=== PATIENT | female | born 1945 | race Caucasian/White ===

== ENCOUNTER → 2018-03-03 | Emergency (ER) | payer MEDICARE, BC ==
[~2018-03-03] MED LIST: HYDROcodone/Acetaminophen 10/325 mg Tablet ONE
--- NOTE | 2018-03-03 22:26 | CT ---
CT CERVICAL SPINE WITHOUT CONTRAST: 03/03/18 HISTORY: Fall. Occipital pain. occipital bone fracture. COMPARISON: 03/11/17 TECHNIQUE: CT cervical spine is performed without contrast. Reformatted images are submitted for interpretation. No craniocervical dissociation. Lateral masses of C1-C2 as well as the facets have appropriate articu lation. Intact odontoid process. Stable degenerative changes of the cervical spine. Vertebral body he ight is maintained. There is no fracture. Mild straightening of the normal cervical lordosis is presu med to be due to patient position or muscle spasm. No prevertebral soft tissue swelling. Chronic changes of the lung apices. No high grade central canal stenosis or high grade foraminal narrowing. Stable stenosis due to degene rative change is identified. Evaluation is limited by technique. Minimal heterogeneous thyroid gland. IMPRESSION: No evidence of cervical spine fracture. POS: [facility]
--- NOTE | 2018-03-03 22:30 | CT ---
BRAIN CT WITHOUT CONTRAST: 03/03/18 HISTORY: Patient fell and hit occiput. COMPARISON: 03/11/17. TECHNIQUE: Brain CT is performed without contrast. Reformatted images are submitted for interpretation. FINDINGS: No parenchymal hemorrhage or extra-axial hematoma. No midline shift. Basilar cisterns are patent. Age appropriate atrophy. Cortical campbell-white different iation is preserved. Ventricles and sulci are patent and symmetric. White matter hypodensities due to chronic small vessel ischemic changes are identified. Adequate aeration of the sinuses and mastoid air cells. Cavernous carotid atherosclerosis is noted. There is a small amount of hematoma on the posterior midline scalp. There is a nondisplaced fracture involving the right occipital bone (axial images 4-9). IMPRESSION: 1. Nondisplaced right occipital bone fracture. 2. Posterior midline scalp soft tissue hematoma. 3. No intracranial or posttraumatic sequela. POS: [facility]
== END ==
LOC: MADERS 21:04
DX: S06.0X0A Concussion without loss of consciousness, initial encounter (principal); S02.119A Unspecified fracture of occiput, initial encounter for closed fracture; M06.9 Rheumatoid arthritis, unspecified; E11.9 Type 2 diabetes mellitus without complications; E78.5 Hyperlipidemia, unspecified; I10 Essential (primary) hypertension; Z79.899 Other long term (current) drug therapy; Z79.4 Long term (current) use of insulin; W18.30XA Fall on same level, unspecified, initial encounter
CPT/HCPCS: 70450; 72125

== ENCOUNTER 2018-07-28 18:47 | Emergency (ER) | payer MEDICARE, BC ==
--- NOTE | 2018-07-28 21:21 | RAD ---
RIGHT SHOULDER THREE VIEWS: HISTORY: A 2-year-old female with a history of right shoulder injury. FINDINGS: AC joint arthrosis changes. There is some downsloping of the lateral acromion. Degenerative changes of the glenohumeral joint. IMPRESSION: 1. Degenerative changes of the acromioclavicular joint and glenohumeral joint. 2. No acute fracture or dislocation. POS: [facility]
--- NOTE | 2018-07-28 21:37 | CT ---
CT BRAIN WITHOUT IV CONTRAST: HISTORY: A 72-year-old female with a history of injury. FINDINGS: No focal mass or midline shift. No intraaxial or extraaxial hemorrhage. Mild atrophy. IMPRESSION: 1. Mild atrophy. 2. No mass, bleed, or other acute process. POS: [facility]
== END 2018-07-28 21:45 | disposition home or self-care (01) ==
LOC: MADERS 18:47
DX: S00.03XA Contusion of scalp, initial encounter (principal); S40.011A Contusion of right shoulder, initial encounter; I10 Essential (primary) hypertension; E78.00 Pure hypercholesterolemia, unspecified; E11.9 Type 2 diabetes mellitus without complications; Z79.899 Other long term (current) drug therapy; Z79.4 Long term (current) use of insulin; W01.0XXA Fall on same level from slipping, tripping and stumbling without subsequent striking against object, initial encounter
CPT/HCPCS: 70450

== ENCOUNTER 2019-02-13 13:37 | Outpatient (CLI) | payer MEDICARE, BC ==
--- NOTE | 2019-02-13 14:34 | RAD ---
Right forearm 2 views HISTORY: Fall. Right arm injury. FINDINGS: Subtle transverse cortical disruption involves the distal radial metaphysis with buckling o f the lateral cortex. No displacement. Lateral view shows fluid distention of the elbow joint capsule as evidenced by elevation of the dista l humeral fat pads. No fracture planes are apparent. There are degenerative changes of the elbow and wrist. Erosive changes involve the lateral margin of the triquetrum. No triquetral fracture is ev ident lateral view. Osseous structures are diffusely demineralized. IMPRESSION: Probable nondisplaced slightly impacted distal right radial fracture. Please correlate re garding point tenderness at the distal radius. Fluid distention of the elbow joint capsule without fracture plane apparent. If symptoms are referabl e to the elbow, please consider immobilization and short-term radiographic follow-up. Prominent degenerative changes of the wrist. Osteoporosis.
== END 2019-02-13 13:38 | disposition home or self-care (01) ==
LOC: MADRAD 13:37
PROVIDERS: ATTEND Physician Assistant
DX: Z91.81 History of falling (principal); M19.031 Primary osteoarthritis, right wrist; M81.0 Age-related osteoporosis without current pathological fracture; M25.831 Other specified joint disorders, right wrist

== ENCOUNTER 2020-03-20 19:41 | Emergency (ER) | payer MEDICARE, BC ==
[2020-03-20] MEDS ORDERED: Morphine 4 MG/ML VIAL ONE ×2 (20:18→23:12)
--- NOTE | 2020-03-20 21:14 | RAD ---
RIGHT HUMERUS: 03/20/20 A total of four views. HISTORY: Fall with injury. There is fracture of the distal humerus at the elbow. There is slight comminution and evidence of dis placement of the medial condyle of the distal humerus. The radius and ulna appear intact but are subo ptimally evaluated. The shoulder appears unremarkable. IMPRESSION: Fracture distal humerus. POS: [facility]
--- NOTE | 2020-03-20 21:19 | RAD ---
LEFT ANKLE: 03/20/20 Three views. HISTORY: Fall with injury and pain. No significant soft tissue swelling. Mild degenerative changes at the tibiotalar joint. There is mild flattening of the talar dome on the lateral view. No evidence of acute fracture identified. IMPRESSION: No evidence of acute fracture. POS: [facility]
--- NOTE | 2020-03-20 22:00 | RAD ---
RIGHT ELBOW: 03/20/20 Two views. Patient unable to adequately position for the images. HISTORY: Injury from fall. There is a slightly comminuted fracture of the distal humerus at the elbow. This appears to involve t he medial condyle of the distal humerus with displacement. There is mild comminution. The radius and ulna appear intact. IMPRESSION: Fracture distal humerus. POS: [facility]
--- NOTE | 2020-03-20 23:23 | RAD ---
RIGHT FOREARM 2 VIEWS: Date: 03/20/2020 HISTORY: Fall with injury. Comparison made to prior elbow exam from 2019. FINDINGS: Severe degenerative change at the wrist. There is carpal collapse and narrowing of the radiocarpal richard int with sclerosis and hypertrophic change. These carpal bone findings appear stable. On the lateral view, there is evidence of a fracture of the distal humerus with a displaced fragment seen ventrally. This is not appreciated in the AP projection. Recommend dedicated elbow films. No other abnormality of the forearm seen. IMPRESSION: Evidence of fracture of the distal humerus seen on lateral view of the forearm. 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 These carpal changes appear stable with no evidence of acute forearm fracture identified. POS: [facility]
== END 2020-03-21 | disposition home or self-care (01) ==
LOC: MADERS 19:41
DX: S42.441A Displaced fracture (avulsion) of medial epicondyle of right humerus, initial encounter for closed fracture (principal); S93.402A Sprain of unspecified ligament of left ankle, initial encounter; I10 Essential (primary) hypertension; E11.9 Type 2 diabetes mellitus without complications; E78.00 Pure hypercholesterolemia, unspecified; Z79.899 Other long term (current) drug therapy; X58.XXXA Exposure to other specified factors, initial encounter
CPT/HCPCS: 24530; 96372; J2270

== ENCOUNTER 2020-08-26 12:09 | Emergency (ER) | payer MEDICARE, BC ==
[2020-08-26 12:45] LABS: #Basophils 0.1 thou/uL (0.0-0.2); #Eosinphils 0.2 thou/uL (0.0-0.7); #Lymphocytes 1.8 thou/uL (1.20-3.40); #Monocytes 0.6 thou/uL (0.11-0.59); #Neutrophils 8.5 thou/uL (1.40-6.50); %Basophils 0.7 % (0.0-1.0); %Eosinophils 1.6 % (0.0-10.0); %Lymphocytes 16.1 % (21.0-51.0); %Monocytes 5.5 % (0.0-10.0); %Neutrophils 76.1 % (42.0-75.0); Hemoglobin 11.9 g/dL (12.0-16.0); Mean Corpuscular HGB CONC 32.4 g/dL (32.0-36.0); Mean Corpuscular Hemoglobin 29.3 pg (27.0-31.0); Mean Corpuscular Volume 90.7 fL (78.0-98.0); Mean Platelet Volume 6.1 fL (7.4-10.4); Platelet Count 278 thou/uL (130-400); RBC Distribution Width 14.1 % (11.5-14.5); Red Blood Cell (RBC) Count 4.04 mill/uL (4.20-5.40); White Blood Cell (WBC) Count 11.2 thou/uL (4.8-10.8)
[2020-08-26 12:53] LABS: INR-International Normal Ratio 0.8; Prothrombin Time 11.6 sec (12.0-14.7)
[2020-08-26 13:04] LABS: ALT (SGPT) 28 U/L (8-55); AST (SGOT) 36 U/L (5-34); Albumin 3.8 g/dL (3.4-4.8); Alkaline Phosphatase 60 U/L (40-110); Anion Gap 16 mmol/L (10-20); BUN (Urea Nitrogen) 20 mg/dL (9.8-20.1); Bilirubin, Total 0.4 mg/dL (0.2-1.2); Calc. Creatinine Clearance 0 mL/min (70-130); Calcium 9.2 mg/dL (7.8-10.44); Carbon Dioxide 24 mmol/L (23-31); Chloride 102 mmol/L (98-107); Globulin 3.1 g/dL (2.4-3.5); Glucose 181 mg/dL (83-110); Potassium 3.7 mmol/L (3.5-5.1); Protein, Total 6.9 g/dL (6.0-8.3); Sodium 138 mmol/L (136-145)
[2020-08-26] MEDS ORDERED: diphenhydrAMINE 50 MG/ML VIAL ONE (13:14)
[2020-08-26] MEDS ORDERED: Metoclopramide HCl 10 MG/2 ML VIAL ONE (13:22)
== END 2020-08-26 14:10 | disposition home or self-care (01) ==
LOC: MADERS 12:09
DX: I10 Essential (primary) hypertension (principal); R51.9 Headache, unspecified; E11.9 Type 2 diabetes mellitus without complications; E78.00 Pure hypercholesterolemia, unspecified; Z79.899 Other long term (current) drug therapy; Z79.4 Long term (current) use of insulin
CPT/HCPCS: 36415; 80053; 85025; 85610; 96374; 96375; J1200; J2765

== ENCOUNTER 2022-04-01 11:25 | Outpatient (CLI) | payer MEDICARE, BC | END 2022-04-01 11:26 | disposition home or self-care (01) | LOC: MADRAD 11:25 | PROVIDERS: ATTEND Physician Assistant | DX: M25.551 Pain in right hip (principal); M25.552 Pain in left hip ==

== ENCOUNTER 2022-07-05 09:51 | Outpatient (CLI) | payer MEDICARE, BC | END 2022-07-05 09:52 | disposition home or self-care (01) | LOC: MADRAD 09:51 | PROVIDERS: ATTEND Physician Assistant | DX: Z91.81 History of falling (principal) | CPT/HCPCS: 72072 ==

== ENCOUNTER 2022-08-30 11:58 | Inpatient (IN) | payer MEDICARE, BC ==
[2022-08-30] MEDS ORDERED: Artificial Tear Sol 15 ML BOT EA EYE PRN (15:07)
[2022-08-30] MEDS: Calcium Carbonate 600 MG + Vit D TAB PO SCH (20:51)
[2022-08-30] MEDS: Acetaminophen 500 MG TAB PO PRN (20:56)
[2022-08-30] MEDS: ALPRAZolam 0.5 MG TAB PO PRN (21:12)
[2022-08-31 05:30] LABS: #Basophils 0.1 thou/uL (0.0-0.2); #Eosinphils 0.5 thou/uL (0.0-0.7); #Lymphocytes 3.4 thou/uL (1.20-3.40); #Monocytes 0.8 thou/uL (0.11-0.59); #Neutrophils 6.5 thou/uL (1.40-6.50); %Basophils 1.1 % (0.0-1.0); %Eosinophils 4.8 % (0.0-10.0); %Monocytes 6.9 % (0.0-10.0); %Neutrophils 57.2 % (42.0-75.0); Hemoglobin 10.7 g/dL (12.0-16.0); Mean Corpuscular HGB CONC 32.5 g/dL (32.0-36.0); Mean Corpuscular Hemoglobin 27.4 pg (27.0-31.0); Mean Corpuscular Volume 84.4 fl (78.0-98.0); Mean Platelet Volume 5.7 fL (7.4-10.4); Platelet Count 493 10x3/uL (130-400); RBC Distribution Width 12.8 % (11.5-14.5); White Blood Cell (WBC) Count 11.3 10x3/uL (4.8-10.8)
[2022-08-31 05:35] LABS: ALT (SGPT) 34 U/L (8-55); AST (SGOT) 60 U/L (5-34); Albumin 3.5 g/dL (3.4-4.8); Alkaline Phosphatase 62 U/L (40-110); Anion Gap 15 mmol/L (10-20); BUN (Urea Nitrogen) 19 mg/dL (9.8-20.1); Bilirubin, Total 0.4 mg/dL (0.2-1.2); Calc. Creatinine Clearance 45 mL/min (70-130); Calcium 10.8 mg/dL (7.8-10.44); Carbon Dioxide 25 mmol/L (23-31); Chloride 101 mmol/L (98-107); Estimated GFR 77; Globulin 4.3 g/dL (2.4-3.5); Glucose 91 mg/dL (83-110); Potassium 3.9 mmol/L (3.5-5.1); Protein, Total 7.8 g/dL (5.8-8.1); Sodium 137 mmol/L (136-145)
[2022-08-31] MEDS: Glimepiride 2 MG TAB PO SCH (08:34)
[2022-08-31] MEDS: Calcium Carbonate 600 MG + Vit D TAB PO SCH ×2 (08:35→21:03)
[2022-08-31] MEDS: Lisinopril 20 MG TAB PO SCH (08:35)
[2022-08-31] MEDS: Sertraline 100 MG TAB PO SCH (08:35)
[2022-08-31] MEDS: Multivitamin W/ Minerals 1 TAB PO SCH (08:35)
[2022-08-31] MEDS: predniSONE 5 MG TAB PO SCH (08:36)
[2022-08-31] MEDS: [UNRECOGNIZED DRUG - OTHER] PO SCH (08:37)
[2022-08-31] MEDS: Amlodipine 5 MG TAB PO SCH (08:37)
[2022-08-31] MEDS: VIT C PO SCH (08:37)
[2022-08-31] MEDS: GLUC SU PO SCH (08:37)
[2022-08-31] MEDS: CHONDRO SU A PO SCH (08:37)
[2022-08-31] MEDS: Acetaminophen 500 MG TAB PO PRN (08:44)
[2022-08-31] MEDS: Lantus 1000 UNITS/10 ML VIAL SC SCH (08:44)
[2022-08-31] MEDS ORDERED: FLU VACC QS2022-23(65YR UP)/PF 240 MCG/0.7 ML SYRINGE IM ONE (09:00)
[2022-08-31 12:27] LABS: Hemoglobin A1c 8.8 % (4.0-6.0)
[2022-08-31] MEDS: ALPRAZolam 0.5 MG TAB PO PRN (21:04)
[2022-08-31] MEDS: Atorvastatin Calcium 40 MG TAB PO SCH (21:04)
[2022-09-01] MEDS: Glimepiride 2 MG TAB PO SCH (08:20)
[2022-09-01] MEDS: predniSONE 5 MG TAB PO SCH (08:21)
[2022-09-01] MEDS: Calcium Carbonate 600 MG + Vit D TAB PO SCH ×2 (08:21→20:30)
[2022-09-01] MEDS: Sertraline 100 MG TAB PO SCH (08:21)
[2022-09-01] MEDS: Multivitamin W/ Minerals 1 TAB PO SCH (08:21)
[2022-09-01] MEDS: Amlodipine 5 MG TAB PO SCH (08:21)
[2022-09-01] MEDS: GLUC SU PO SCH (08:22)
[2022-09-01] MEDS: VIT C PO SCH (08:22)
[2022-09-01] MEDS: CHONDRO SU A PO SCH (08:22)
[2022-09-01] MEDS: [UNRECOGNIZED DRUG - OTHER] PO SCH (08:22)
[2022-09-01] MEDS: Lisinopril 20 MG TAB PO SCH (08:22)
[2022-09-01] MEDS: Lantus 1000 UNITS/10 ML VIAL SC SCH (08:22)
[2022-09-01] MEDS: tiZANidine HCl 4 MG TAB PO PRN (13:25)
[2022-09-01] MEDS: Acetaminophen 500 MG TAB PO PRN ×2 (13:26→20:30)
[2022-09-01] MEDS: ALPRAZolam 0.5 MG TAB PO PRN (20:31)
[2022-09-01] MEDS: Atorvastatin Calcium 40 MG TAB PO SCH (20:31)
[2022-09-02] MEDS: Glimepiride 2 MG TAB PO SCH (08:18)
[2022-09-02] MEDS: Multivitamin W/ Minerals 1 TAB PO SCH (08:20)
[2022-09-02] MEDS: predniSONE 5 MG TAB PO SCH (08:20)
[2022-09-02] MEDS: Calcium Carbonate 600 MG + Vit D TAB PO SCH ×2 (08:20→20:54)
[2022-09-02] MEDS: Amlodipine 5 MG TAB PO SCH (08:20)
[2022-09-02] MEDS: Sertraline 100 MG TAB PO SCH (08:20)
[2022-09-02] MEDS: Lisinopril 20 MG TAB PO SCH (08:20)
[2022-09-02] MEDS: tiZANidine HCl 4 MG TAB PO PRN (08:27)
[2022-09-02] MEDS: Acetaminophen 500 MG TAB PO PRN ×2 (08:28→20:54)
[2022-09-02] MEDS: Lantus 1000 UNITS/10 ML VIAL SC SCH (08:28)
[2022-09-02] MEDS: VIT C PO SCH (08:34)
[2022-09-02] MEDS: CHONDRO SU A PO SCH (08:34)
[2022-09-02] MEDS: [UNRECOGNIZED DRUG - OTHER] PO SCH (08:34)
[2022-09-02] MEDS: GLUC SU PO SCH (08:34)
[2022-09-02] MEDS: Atorvastatin Calcium 40 MG TAB PO SCH (20:54)
[2022-09-02] MEDS: ALPRAZolam 0.5 MG TAB PO PRN (20:55)
[2022-09-03] MEDS: Glimepiride 2 MG TAB PO SCH (08:40)
[2022-09-03] MEDS: Lisinopril 20 MG TAB PO SCH (08:40)
[2022-09-03] MEDS: Amlodipine 5 MG TAB PO SCH (08:40)
[2022-09-03] MEDS: Lantus 1000 UNITS/10 ML VIAL SC SCH (08:42)
[2022-09-03] MEDS: Calcium Carbonate 600 MG + Vit D TAB PO SCH ×2 (08:42→20:40)
[2022-09-03] MEDS: Sertraline 100 MG TAB PO SCH (08:42)
[2022-09-03] MEDS: predniSONE 5 MG TAB PO SCH (08:42)
[2022-09-03] MEDS: Multivitamin W/ Minerals 1 TAB PO SCH (08:42)
[2022-09-03] MEDS ORDERED: Acetaminophen 500 MG TAB PO PRN (13:51)
[2022-09-03] MEDS: Atorvastatin Calcium 40 MG TAB PO SCH (20:41)
[2022-09-03] MEDS: ALPRAZolam 0.5 MG TAB PO PRN (20:41)
[2022-09-04] MEDS: Amlodipine 5 MG TAB PO SCH (08:29)
[2022-09-04] MEDS: Glimepiride 2 MG TAB PO SCH (08:29)
[2022-09-04] MEDS: Multivitamin W/ Minerals 1 TAB PO SCH (08:29)
[2022-09-04] MEDS: Ferrous Sulfate 325 MG TAB PO SCH (08:29)
[2022-09-04] MEDS: Sertraline 100 MG TAB PO SCH (08:29)
[2022-09-04] MEDS: predniSONE 5 MG TAB PO SCH (08:29)
[2022-09-04] MEDS: Lisinopril 20 MG TAB PO SCH (08:30)
[2022-09-04] MEDS: Lantus 1000 UNITS/10 ML VIAL SC SCH (08:30)
[2022-09-04] MEDS: Calcium Carbonate 600 MG + Vit D TAB PO SCH ×2 (08:30→20:32)
[2022-09-04] MEDS: Atorvastatin Calcium 40 MG TAB PO SCH (20:32)
[2022-09-05] MEDS: Lisinopril 20 MG TAB PO SCH (08:15)
[2022-09-05] MEDS: Calcium Carbonate 600 MG + Vit D TAB PO SCH ×2 (08:15→20:48)
[2022-09-05] MEDS: predniSONE 5 MG TAB PO SCH (08:16)
[2022-09-05] MEDS: Glimepiride 2 MG TAB PO SCH (08:16)
[2022-09-05] MEDS: Multivitamin W/ Minerals 1 TAB PO SCH (08:16)
[2022-09-05] MEDS: Lantus 1000 UNITS/10 ML VIAL SC SCH (08:16)
[2022-09-05] MEDS: Sertraline 100 MG TAB PO SCH (08:16)
[2022-09-05] MEDS: Amlodipine 5 MG TAB PO SCH (08:16)
[2022-09-05] MEDS: Methotrexate Sodium 2.5 MG TAB PO SCH (08:18)
[2022-09-05] MEDS: Ferrous Sulfate 325 MG TAB PO SCH (08:19)
[2022-09-05] MEDS: Atorvastatin Calcium 40 MG TAB PO SCH (20:48)
[2022-09-05] MEDS: ALPRAZolam 0.5 MG TAB PO PRN (20:49)
[2022-09-06] MEDS: Glimepiride 2 MG TAB PO SCH (08:15)
[2022-09-06] MEDS: Multivitamin W/ Minerals 1 TAB PO SCH (08:15)
[2022-09-06] MEDS: Sertraline 100 MG TAB PO SCH (08:15)
[2022-09-06] MEDS: predniSONE 5 MG TAB PO SCH (08:16)
[2022-09-06] MEDS: Lisinopril 20 MG TAB PO SCH ×2 (08:16→20:25)
[2022-09-06] MEDS: Calcium Carbonate 600 MG + Vit D TAB PO SCH ×2 (08:16→20:25)
[2022-09-06] MEDS: Amlodipine 5 MG TAB PO SCH (08:16)
[2022-09-06] MEDS: Ferrous Sulfate 325 MG TAB PO SCH (08:17)
[2022-09-06] MEDS: Lantus 1000 UNITS/10 ML VIAL SC SCH (08:17)
[2022-09-06] MEDS: Acetaminophen 500 MG TAB PO PRN (12:45)
[2022-09-06] MEDS: Acetaminophen 500 MG TAB PO SCH (20:23)
[2022-09-06] MEDS: Atorvastatin Calcium 40 MG TAB PO SCH (20:24)
[2022-09-06] MEDS: ALPRAZolam 0.5 MG TAB PO PRN (20:24)
[2022-09-07] MEDS: Acetaminophen 500 MG TAB PO PRN (07:20)
[2022-09-07] MEDS: Amlodipine 5 MG TAB PO SCH (08:25)
[2022-09-07] MEDS: Multivitamin W/ Minerals 1 TAB PO SCH (08:25)
[2022-09-07] MEDS: predniSONE 5 MG TAB PO SCH (08:25)
[2022-09-07] MEDS: Calcium Carbonate 600 MG + Vit D TAB PO SCH ×2 (08:25→20:40)
[2022-09-07] MEDS: Lisinopril 20 MG TAB PO SCH ×2 (08:26→20:39)
[2022-09-07] MEDS: Glimepiride 2 MG TAB PO SCH (08:26)
[2022-09-07] MEDS: Acetaminophen 500 MG TAB PO SCH ×2 (08:27→20:38)
[2022-09-07] MEDS: Lantus 1000 UNITS/10 ML VIAL SC SCH (08:28)
[2022-09-07] MEDS: Ferrous Sulfate 325 MG TAB PO SCH (08:29)
[2022-09-07] MEDS: Sertraline 100 MG TAB PO SCH (08:45)
[2022-09-07] MEDS: Acetaminophen 325 MG TAB PO PRN (15:37)
[2022-09-07] MEDS: Atorvastatin Calcium 40 MG TAB PO SCH (20:39)
[2022-09-07] MEDS: tiZANidine HCl 4 MG TAB PO PRN (20:43)
[2022-09-08] MEDS: Glimepiride 2 MG TAB PO SCH (08:24)
[2022-09-08] MEDS: Calcium Carbonate 600 MG + Vit D TAB PO SCH ×2 (08:25→20:33)
[2022-09-08] MEDS: Ferrous Sulfate 325 MG TAB PO SCH (08:26)
[2022-09-08] MEDS: Multivitamin W/ Minerals 1 TAB PO SCH (08:26)
[2022-09-08] MEDS: Amlodipine 5 MG TAB PO SCH (08:26)
[2022-09-08] MEDS: Acetaminophen 500 MG TAB PO SCH ×2 (08:26→21:16)
[2022-09-08] MEDS: Sertraline 100 MG TAB PO SCH (08:26)
[2022-09-08] MEDS: Lisinopril 20 MG TAB PO SCH ×2 (08:26→20:33)
[2022-09-08] MEDS: Lantus 1000 UNITS/10 ML VIAL SC SCH (08:32)
[2022-09-08] MEDS: predniSONE 5 MG TAB PO SCH (08:32)
[2022-09-08] MEDS: tiZANidine HCl 4 MG TAB PO PRN (20:33)
[2022-09-08] MEDS: Atorvastatin Calcium 40 MG TAB PO SCH (20:33)
[2022-09-09] MEDS: Acetaminophen 325 MG TAB PO PRN (04:35)
[2022-09-09] MEDS: Lisinopril 20 MG TAB PO SCH ×2 (08:23→21:34)
[2022-09-09] MEDS: Multivitamin W/ Minerals 1 TAB PO SCH (08:23)
[2022-09-09] MEDS: Sertraline 100 MG TAB PO SCH (08:23)
[2022-09-09] MEDS: predniSONE 5 MG TAB PO SCH (08:24)
[2022-09-09] MEDS: Ferrous Sulfate 325 MG TAB PO SCH (08:24)
[2022-09-09] MEDS: Calcium Carbonate 600 MG + Vit D TAB PO SCH ×2 (08:24→21:34)
[2022-09-09] MEDS: Glimepiride 2 MG TAB PO SCH (08:24)
[2022-09-09] MEDS: Acetaminophen 500 MG TAB PO SCH ×2 (08:25→21:34)
[2022-09-09] MEDS: Amlodipine 5 MG TAB PO SCH (08:25)
[2022-09-09] MEDS: Lantus 1000 UNITS/10 ML VIAL SC SCH (08:25)
[2022-09-09] MEDS: Atorvastatin Calcium 40 MG TAB PO SCH (21:34)
[2022-09-10] MEDS: Amlodipine 5 MG TAB PO SCH (07:47)
[2022-09-10] MEDS: Lisinopril 20 MG TAB PO SCH ×2 (07:48→21:45)
[2022-09-10] MEDS: Glimepiride 2 MG TAB PO SCH (07:48)
[2022-09-10] MEDS: Sertraline 100 MG TAB PO SCH (07:48)
[2022-09-10] MEDS: Calcium Carbonate 600 MG + Vit D TAB PO SCH ×2 (07:49→21:45)
[2022-09-10] MEDS: predniSONE 5 MG TAB PO SCH (07:49)
[2022-09-10] MEDS: Ferrous Sulfate 325 MG TAB PO SCH (07:49)
[2022-09-10] MEDS: Multivitamin W/ Minerals 1 TAB PO SCH (07:49)
[2022-09-10] MEDS: Acetaminophen 500 MG TAB PO SCH ×2 (07:49→21:45)
[2022-09-10] MEDS: Lantus 1000 UNITS/10 ML VIAL SC SCH (07:50)
[2022-09-10] MEDS: Atorvastatin Calcium 40 MG TAB PO SCH (21:45)
[2022-09-11] MEDS: predniSONE 5 MG TAB PO SCH (08:53)
[2022-09-11] MEDS: Lisinopril 20 MG TAB PO SCH ×2 (08:53→21:12)
[2022-09-11] MEDS: Glimepiride 2 MG TAB PO SCH (08:53)
[2022-09-11] MEDS: Ferrous Sulfate 325 MG TAB PO SCH (08:54)
[2022-09-11] MEDS: Multivitamin W/ Minerals 1 TAB PO SCH (08:54)
[2022-09-11] MEDS: Amlodipine 5 MG TAB PO SCH (08:54)
[2022-09-11] MEDS: Calcium Carbonate 600 MG + Vit D TAB PO SCH ×2 (08:54→21:04)
[2022-09-11] MEDS: Lantus 1000 UNITS/10 ML VIAL SC SCH (08:55)
[2022-09-11] MEDS: Sertraline 100 MG TAB PO SCH (08:55)
[2022-09-11] MEDS: Acetaminophen 500 MG TAB PO SCH ×2 (08:55→21:02)
[2022-09-11] MEDS: Atorvastatin Calcium 40 MG TAB PO SCH (21:03)
[2022-09-12] MEDS: Glimepiride 2 MG TAB PO SCH (08:53)
[2022-09-12] MEDS: Amlodipine 5 MG TAB PO SCH (08:53)
[2022-09-12] MEDS: Sertraline 100 MG TAB PO SCH (08:53)
[2022-09-12] MEDS: Lisinopril 20 MG TAB PO SCH ×2 (08:53→20:45)
[2022-09-12] MEDS: Calcium Carbonate 600 MG + Vit D TAB PO SCH ×2 (08:54→20:45)
[2022-09-12] MEDS: Multivitamin W/ Minerals 1 TAB PO SCH (08:54)
[2022-09-12] MEDS: predniSONE 5 MG TAB PO SCH (08:54)
[2022-09-12] MEDS: Ferrous Sulfate 325 MG TAB PO SCH (08:54)
[2022-09-12] MEDS: Lantus 1000 UNITS/10 ML VIAL SC SCH (08:55)
[2022-09-12] MEDS: Acetaminophen 500 MG TAB PO SCH ×2 (08:55→20:45)
[2022-09-12] MEDS: Methotrexate Sodium 2.5 MG TAB PO SCH (08:58)
[2022-09-12] MEDS: tiZANidine HCl 4 MG TAB PO PRN (20:45)
[2022-09-12] MEDS: Atorvastatin Calcium 40 MG TAB PO SCH (20:45)
[2022-09-13] MEDS: Glimepiride 2 MG TAB PO SCH (08:46)
[2022-09-13] MEDS: predniSONE 5 MG TAB PO SCH (08:46)
[2022-09-13] MEDS: Acetaminophen 500 MG TAB PO SCH ×2 (08:47→21:55)
[2022-09-13] MEDS: Multivitamin W/ Minerals 1 TAB PO SCH (08:47)
[2022-09-13] MEDS: Lisinopril 20 MG TAB PO SCH ×2 (08:47→21:51)
[2022-09-13] MEDS: Amlodipine 5 MG TAB PO SCH (08:48)
[2022-09-13] MEDS: Ferrous Sulfate 325 MG TAB PO SCH (08:49)
[2022-09-13] MEDS: Lantus 1000 UNITS/10 ML VIAL SC SCH (08:49)
[2022-09-13] MEDS: Calcium Carbonate 600 MG + Vit D TAB PO SCH ×2 (08:49→21:54)
[2022-09-13] MEDS: Sertraline 100 MG TAB PO SCH (08:49)
[2022-09-13] MEDS ORDERED: ALPRAZolam 0.5 MG TAB PO PRN (21:00)
[2022-09-13] MEDS: Atorvastatin Calcium 40 MG TAB PO SCH (21:50)
[2022-09-13] MEDS: ALPRAZolam 0.5 MG TAB PO PRN (21:54)
[2022-09-14] MEDS: Acetaminophen 325 MG TAB PO PRN (03:50)
[2022-09-14] MEDS: Ferrous Sulfate 325 MG TAB PO SCH (08:17)
[2022-09-14] MEDS: Glimepiride 2 MG TAB PO SCH (08:18)
[2022-09-14] MEDS: Lisinopril 20 MG TAB PO SCH ×2 (08:18→20:46)
[2022-09-14] MEDS: Multivitamin W/ Minerals 1 TAB PO SCH (08:18)
[2022-09-14] MEDS: predniSONE 5 MG TAB PO SCH (08:18)
[2022-09-14] MEDS: Acetaminophen 500 MG TAB PO SCH ×2 (08:18→20:46)
[2022-09-14] MEDS: Calcium Carbonate 600 MG + Vit D TAB PO SCH ×2 (08:18→20:46)
[2022-09-14] MEDS: Amlodipine 5 MG TAB PO SCH (08:19)
[2022-09-14] MEDS: Sertraline 100 MG TAB PO SCH (08:19)
[2022-09-14] MEDS: Lantus 1000 UNITS/10 ML VIAL SC SCH (08:19)
[2022-09-14] MEDS: Preparation H Ointment 57 gram tube TOP PRN ×2 (16:03→20:46)
[2022-09-14] MEDS: ALPRAZolam 0.5 MG TAB PO PRN (20:47)
[2022-09-14] MEDS: Atorvastatin Calcium 40 MG TAB PO SCH (20:47)
[2022-09-15 05:14] LABS: Platelet Count 407 10x3/uL (130-400)
[2022-09-15] MEDS: Sertraline 100 MG TAB PO SCH (08:32)
[2022-09-15] MEDS: Calcium Carbonate 600 MG + Vit D TAB PO SCH ×2 (08:32→20:05)
[2022-09-15] MEDS: Amlodipine 5 MG TAB PO SCH (08:32)
[2022-09-15] MEDS: Multivitamin W/ Minerals 1 TAB PO SCH (08:32)
[2022-09-15] MEDS: Ferrous Sulfate 325 MG TAB PO SCH (08:33)
[2022-09-15] MEDS: predniSONE 5 MG TAB PO SCH (08:33)
[2022-09-15] MEDS: Acetaminophen 500 MG TAB PO SCH ×2 (08:33→20:05)
[2022-09-15] MEDS: Lantus 1000 UNITS/10 ML VIAL SC SCH (08:53)
[2022-09-15] MEDS: Glimepiride 2 MG TAB PO SCH ×2 (08:55→09:03)
[2022-09-15] MEDS: Lisinopril 20 MG TAB PO SCH ×2 (08:55→20:05)
[2022-09-15] MEDS: Preparation H Ointment 57 gram tube TOP PRN (13:00)
[2022-09-15] MEDS: Atorvastatin Calcium 40 MG TAB PO SCH (20:04)
[2022-09-15] MEDS: ALPRAZolam 0.5 MG TAB PO PRN (20:04)
[2022-09-16] MEDS: Preparation H Ointment 57 gram tube TOP PRN (08:30)
[2022-09-16] MEDS: Glimepiride 2 MG TAB PO SCH (08:31)
[2022-09-16] MEDS: Ferrous Sulfate 325 MG TAB PO SCH (08:32)
[2022-09-16] MEDS: predniSONE 5 MG TAB PO SCH (08:32)
[2022-09-16] MEDS: Acetaminophen 500 MG TAB PO SCH ×2 (08:33→21:13)
[2022-09-16] MEDS: Amlodipine 5 MG TAB PO SCH (08:34)
[2022-09-16] MEDS: Calcium Carbonate 600 MG + Vit D TAB PO SCH ×3 (08:36→21:11)
[2022-09-16] MEDS: Multivitamin W/ Minerals 1 TAB PO SCH (08:37)
[2022-09-16] MEDS: Lisinopril 20 MG TAB PO SCH ×2 (08:37→21:12)
[2022-09-16] MEDS: Sertraline 100 MG TAB PO SCH (08:38)
[2022-09-16] MEDS: ALPRAZolam 0.5 MG TAB PO PRN (21:10)
[2022-09-16] MEDS: Atorvastatin Calcium 40 MG TAB PO SCH (21:13)
[2022-09-16] MEDS ORDERED: Benzonatate 100 MG CAP PO PRN (22:56)
[2022-09-17] MEDS: Calcium Carbonate 600 MG + Vit D TAB PO SCH ×2 (08:49→21:25)
[2022-09-17] MEDS: Acetaminophen 500 MG TAB PO SCH ×2 (08:50→21:27)
[2022-09-17] MEDS: Lisinopril 20 MG TAB PO SCH ×2 (08:51→21:25)
[2022-09-17] MEDS: Glimepiride 2 MG TAB PO SCH (08:52)
[2022-09-17] MEDS: predniSONE 5 MG TAB PO SCH (08:54)
[2022-09-17] MEDS: Ferrous Sulfate 325 MG TAB PO SCH (08:54)
[2022-09-17] MEDS: Amlodipine 5 MG TAB PO SCH (08:54)
[2022-09-17] MEDS: Sertraline 100 MG TAB PO SCH (08:54)
[2022-09-17] MEDS: Multivitamin W/ Minerals 1 TAB PO SCH (08:57)
[2022-09-17] MEDS: Preparation H Ointment 57 gram tube TOP PRN (09:01)
[2022-09-17] MEDS: Atorvastatin Calcium 40 MG TAB PO SCH (21:25)
[2022-09-17] MEDS: ALPRAZolam 0.5 MG TAB PO PRN (21:40)
[2022-09-18] MEDS: Calcium Carbonate 600 MG + Vit D TAB PO SCH ×2 (08:19→21:03)
[2022-09-18] MEDS: Lisinopril 20 MG TAB PO SCH ×2 (08:20→21:03)
[2022-09-18] MEDS: Acetaminophen 500 MG TAB PO SCH ×2 (08:21→21:02)
[2022-09-18] MEDS: predniSONE 5 MG TAB PO SCH (08:21)
[2022-09-18] MEDS: Multivitamin W/ Minerals 1 TAB PO SCH (08:22)
[2022-09-18] MEDS: Sertraline 100 MG TAB PO SCH (08:22)
[2022-09-18] MEDS: Glimepiride 2 MG TAB PO SCH (08:23)
[2022-09-18] MEDS: Amlodipine 5 MG TAB PO SCH (08:24)
[2022-09-18] MEDS: Ferrous Sulfate 325 MG TAB PO SCH (08:24)
[2022-09-18] MEDS: Preparation H Ointment 57 gram tube TOP PRN (08:25)
[2022-09-18] MEDS ORDERED: Ketotifen Fumarate 0.025% Ophth Soln 5 ml Bottle EA EYE SCH (10:15)
[2022-09-18] MEDS: Atorvastatin Calcium 40 MG TAB PO SCH (21:04)
[2022-09-18] MEDS: tiZANidine HCl 4 MG TAB PO PRN (21:06)
[2022-09-18] MEDS: Ketotifen Fumarate 0.025% Ophth Soln 5 ml Bottle EA EYE SCH ×2 (21:28→21:39)
[2022-09-19] MEDS: Calcium Carbonate 600 MG + Vit D TAB PO SCH ×2 (08:01→20:59)
[2022-09-19] MEDS: Acetaminophen 500 MG TAB PO SCH ×2 (08:02→20:59)
[2022-09-19] MEDS: Multivitamin W/ Minerals 1 TAB PO SCH (08:02)
[2022-09-19] MEDS: Glimepiride 2 MG TAB PO SCH (08:03)
[2022-09-19] MEDS: predniSONE 5 MG TAB PO SCH (08:04)
[2022-09-19] MEDS: Amlodipine 5 MG TAB PO SCH (08:05)
[2022-09-19] MEDS: Sertraline 100 MG TAB PO SCH (08:07)
[2022-09-19] MEDS: Ferrous Sulfate 325 MG TAB PO SCH (08:07)
[2022-09-19] MEDS: Lisinopril 20 MG TAB PO SCH ×2 (08:07→20:59)
[2022-09-19] MEDS: Ketotifen Fumarate 0.025% Ophth Soln 5 ml Bottle EA EYE SCH ×2 (08:08→21:00)
[2022-09-19] MEDS: Preparation H Ointment 57 gram tube TOP PRN (08:09)
[2022-09-19] MEDS: Methotrexate Sodium 2.5 MG TAB PO SCH (08:13)
[2022-09-19] MEDS: Atorvastatin Calcium 40 MG TAB PO SCH (21:00)
[2022-09-19] MEDS: ALPRAZolam 0.5 MG TAB PO PRN (23:48)
[2022-09-20] MEDS: Glimepiride 2 MG TAB PO SCH (08:20)
[2022-09-20] MEDS: predniSONE 5 MG TAB PO SCH (08:21)
[2022-09-20] MEDS: Acetaminophen 500 MG TAB PO SCH (08:21)
[2022-09-20] MEDS: Multivitamin W/ Minerals 1 TAB PO SCH (08:22)
[2022-09-20] MEDS: Amlodipine 5 MG TAB PO SCH (08:22)
[2022-09-20] MEDS: Sertraline 100 MG TAB PO SCH (08:22)
[2022-09-20] MEDS: Calcium Carbonate 600 MG + Vit D TAB PO SCH (08:22)
[2022-09-20] MEDS: Lisinopril 20 MG TAB PO SCH (08:22)
[2022-09-20] MEDS: Ferrous Sulfate 325 MG TAB PO SCH (08:23)
[2022-09-20] MEDS: Ketotifen Fumarate 0.025% Ophth Soln 5 ml Bottle EA EYE SCH (08:24)
[2022-09-20 15:27] VITALS: BP 138/82; TEMP 98.7
== END 2022-09-20 15:29 | disposition home health service (06) | DRG 948 ==
LOC: MADMS 11:58
PROVIDERS: ADMIT Family Medicine; ATTEND Family Medicine
DX: R53.81 Other malaise (principal); R53.1 Weakness; Z20.822 Contact with and (suspected) exposure to COVID-19; I10 Essential (primary) hypertension; E11.9 Type 2 diabetes mellitus without complications; Z79.4 Long term (current) use of insulin; Z60.2 Problems related to living alone; D64.9 Anemia, unspecified; E78.5 Hyperlipidemia, unspecified; M06.9 Rheumatoid arthritis, unspecified; M15.9 Polyosteoarthritis, unspecified; Z96.653 Presence of artificial knee joint, bilateral; Z90.710 Acquired absence of both cervix and uterus; Z90.89 Acquired absence of other organs; Z79.899 Other long term (current) drug therapy; Z79.84 Long term (current) use of oral hypoglycemic drugs; Z79.52 Long term (current) use of systemic steroids; Z88.8 Allergy status to other drugs, medicaments and biological substances; Z88.1 Allergy status to other antibiotic agents
CPT/HCPCS: 36416; 80053; 83036; 85014; 85018; 85025; 85049; 87811; J1650; J1815; J7512; J8610; U0003; U0005

== ENCOUNTER 2022-12-14 15:46 | Emergency (ER) | payer OTHER, MEDICARE, BC ==
[~2022-12-14 15:46] MED LIST changes: -HYDROcodone/Acetaminophen 10/325 mg Tablet ONE; +Iopamidol 370 76% 100 ML VIAL ONE
[2022-12-14 17:18] LABS: #Basophils 0.1 thou/uL (0.0-0.2); #Eosinphils 0.1 thou/uL (0.0-0.7); #Lymphocytes 1.7 thou/uL (1.20-3.40); #Monocytes 0.8 thou/uL (0.11-0.59); #Neutrophils 8.2 thou/uL (1.40-6.50); %Basophils 0.9 % (0.0-1.0); %Eosinophils 0.9 % (0.0-10.0); %Lymphocytes 15.8 % (21.0-51.0); %Monocytes 7.3 % (0.0-10.0); Hemoglobin 11.2 g/dL (12.0-16.0); Mean Corpuscular HGB CONC 33.7 g/dL (32.0-36.0); Mean Corpuscular Hemoglobin 29.4 pg (27.0-31.0); Mean Corpuscular Volume 87.3 fl (78.0-98.0); Mean Platelet Volume 7.4 fL (7.4-10.4); Platelet Count 412 10x3/uL (130-400); RBC Distribution Width 14.2 % (11.5-14.5); Red Blood Cell (RBC) Count 3.82 mill/uL (4.20-5.40); White Blood Cell (WBC) Count 10.9 10x3/uL (4.8-10.8)
[2022-12-14 17:29] LABS: ALT (SGPT) 11 U/L (8-55); AST (SGOT) 20 U/L (5-34); Albumin 3.6 g/dL (3.4-4.8); Alkaline Phosphatase 73 U/L (40-110); Anion Gap 13 mmol/L (10-20); BUN (Urea Nitrogen) 10 mg/dL (9.8-20.1); Bilirubin, Total 0.3 mg/dL (0.2-1.2); Calc. Creatinine Clearance 0 mL/min (70-130); Calcium 9.6 mg/dL (7.8-10.44); Carbon Dioxide 28 mmol/L (23-31); Chloride 101 mmol/L (98-107); Estimated GFR 81; Globulin 3.7 g/dL (2.4-3.5); Glucose 123 mg/dL (83-110); Potassium 3.5 mmol/L (3.5-5.1); Protein, Total 7.3 g/dL (5.8-8.1); Sodium 138 mmol/L (136-145)
[2022-12-14 17:42] LABS: INR-International Normal Ratio 0.9; Prothrombin Time 12.5 sec (12.0-14.7)
[2022-12-14 17:43] LABS: PTT 25.6 sec (22.9-36.1)
[2022-12-14] MEDS ORDERED: Ondansetron PF 4 MG/2 ML Vial ONE (17:51)
[2022-12-14] MEDS ORDERED: Fentanyl 100 MCG/2 ML VIAL ONE (17:51)
== END 2022-12-14 20:42 | disposition short-term general hospital (02) ==
LOC: MADERS 15:46
DX: S06.5XAA Traumatic subdural hemorrhage with loss of consciousness status unknown, initial encounter (principal); S02.91XA Unspecified fracture of skull, initial encounter for closed fracture; M54.50 Low back pain, unspecified; I10 Essential (primary) hypertension; E11.9 Type 2 diabetes mellitus without complications; E78.00 Pure hypercholesterolemia, unspecified; W01.0XXA Fall on same level from slipping, tripping and stumbling without subsequent striking against object, initial encounter; Z79.84 Long term (current) use of oral hypoglycemic drugs; Z79.899 Other long term (current) drug therapy
CPT/HCPCS: 70450; 71260; 72125; 74177; 80053; 85025; 85610; 85730; G0390; 36415; 96374; 96375; J2405; J3010; Q9967

== ENCOUNTER 2023-01-03 22:43 | Emergency (ER) | payer MEDICARE, BC ==
[2023-01-03] MEDS ORDERED: Lidocaine 4% Patch ONE (23:59)
== END 2023-01-04 02:10 | disposition home or self-care (01) ==
LOC: MADERS 22:43
DX: S22.42XA Multiple fractures of ribs, left side, initial encounter for closed fracture (principal); S06.5XAD Traumatic subdural hemorrhage with loss of consciousness status unknown, subsequent encounter; I10 Essential (primary) hypertension; E11.9 Type 2 diabetes mellitus without complications; E78.00 Pure hypercholesterolemia, unspecified; Z79.899 Other long term (current) drug therapy; Z79.84 Long term (current) use of oral hypoglycemic drugs; W19.XXXA Unspecified fall, initial encounter
CPT/HCPCS: 70450

== ENCOUNTER 2023-01-29 12:17 | Emergency (ER) | payer BC | END 2023-01-29 14:00 | LOC: MADERS 12:17 | DX: S06.5X9A Traumatic subdural hemorrhage with loss of consciousness of unspecified duration, initial encounter (principal); S51.011D Laceration without foreign body of right elbow, subsequent encounter; I10 Essential (primary) hypertension; E11.9 Type 2 diabetes mellitus without complications; E78.00 Pure hypercholesterolemia, unspecified; Z79.84 Long term (current) use of oral hypoglycemic drugs; Z79.899 Other long term (current) drug therapy; W19.XXXA Unspecified fall, initial encounter; Y92.129 Unspecified place in nursing home as the place of occurrence of the external cause | CPT/HCPCS: 70450; 72125 ==